=== PATIENT | male | born 1985 ===

== ENCOUNTER 2017-11-28 12:59 | Outpatient (RCR) | payer OTHER ==
[~2017-11-28 12:59] MED LIST: ASPI-757 PO; CEF300 PO; CHOL500050 PO; ENOX100D5 SQ; IBUP800T37 PO; LEVO-85 PO; ONDA8TAB94 PO; OXYC20OR PO; OXYC20TA61 PO; PROC10TA4 PO; SANCUSOPT TD; WARF-1 PO
[2017-11-28 13:21] LABS: PLATELET COUNT, AUTOMATED 274 K/uL (150-450)
[2017-11-28] MEDS ORDERED: NS 0.9% 20 ML SDV 40 ML ONE (13:29)
[2017-11-28] MEDS ORDERED: GADOBENATE 529MG/1ML 15ML VIAL IVP ONE (13:29)
--- NOTE | 2017-11-28 15:23 | RADIOLOGY IMAGING REPORT ---
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 Additional pertinent history: none TECHNIQUE: Multiplanar multisequence neck MRI was performed without and with intravenous contrast Contrast dose: 15 mL of MultiHance. . Additional focused sequences: none COMPARISON STUDIES: Neck MRI 05/30 17 FINDINGS: Visualized orbits / brain / paranasal sinuses: Right maxillary antrum is asymmetrically small but wi thout evidence of enophthalmos of the right orbit. No acute inflammatory change. Nasal cavity / nasopharynx: negative Oral cavity / oropharynx / hypopharynx: Postsurgical changes of the right lateral tongue with fatty replacement appears stable from prior. The right submandibular gland has been resected. No evidence o f locally recurrent mass or abnormal enhancement. Parapharyngeal / airways control specialist spaces: negative Major salivary glands: Per above. The parotid glands remain normal as does the left submandibular gl and. Larynx / trachea / esophagus / thyroid: negative Perivertebral space: negative Vessels: negative Bones: negative Lymph nodes: negative Upper chest: negative IMPRESSION: Stable postoperative changes involving the intrinsic tongue and right submandibular bed. No evidence of recurrent malignancy. Stable asymmetry of the maxillary sinuses but without associated right-sided enophthalmos to suggest sinusitis syndrome. Report Dictated By: Delta De Jesus MD at 11/28/2017 3:07 PM Report E-Signed By: Delta De Jesus MD at 11/28/2017 3:18 PM WSN:[id number]
[2017-11-29] MEDS ORDERED: LEVO-3 PO (16:56)
[2017-11-29] MEDS ORDERED: MULT1CAP59 PO (17:01)
[2017-12-08] MEDS ORDERED: TRIA5PAS12 DT (12:58)
== END 2017-12-23 14:20 | disposition home or self-care (01) ==
LOC: SPU 12:59
PROVIDERS: ATTEND Radiology Radiation Oncology
DX: Z85.810 Personal history of malignant neoplasm of tongue (principal); K12.1 Other forms of stomatitis; Z92.3 Personal history of irradiation
CPT/HCPCS: 70543; 84443; 85025; 99212; A9577; J7050; 82040; 82247; 82310; 82374; 82435; 82565; 82947; 84075; 84132; 84155; 84295; 84450; 84460; 84520

== ENCOUNTER 2018-02-07 14:55 | Outpatient (RCR) | payer OTHER ==
[2018-02-02 13:00] VITALS: BP 119/87
[~2018-02-07 14:55] MED LIST changes: +LEVO-3 PO; +MULT1CAP59 PO; +TRIA5PAS12 DT
== END 2018-02-26 ==
LOC: RAON 14:55
PROVIDERS: ATTEND Radiology Radiation Oncology
DX: Z85.89 Personal history of malignant neoplasm of other organs and systems (principal); Z92.3 Personal history of irradiation; Z92.21 Personal history of antineoplastic chemotherapy
CPT/HCPCS: 36415; 84443; 99212

== ENCOUNTER 2018-05-30 15:53 | Outpatient (RCR) | payer OTHER ==
[2018-02-02 13:00] VITALS: BP 119/87
--- NOTE | 2018-05-26 15:24 | RADIOLOGY IMAGING REPORT ---
FACILITY: [facility] [place] PATIENT NAME: Gage Sandoval : 1985 MR: [id number] V: [id number] EXAM DATE: ORDERING PHYSICIAN: ED SIMMONS TECHNOLOGIST: Location: [facility] Patient: Gage Sandoval : 1985 Visit/Account:[id number] Date of Sevice: 05/26/2018 ORBIT FACE NECK W W/O CONTRAST INDICATION: Squamous cell carcinoma of the tongue COMPARISON: November 28, 2017, May 30, 2017 TECHNIQUE: Multiplane pre and postcontrast MR imaging performed through the neck. 15 mL MultiHance i njected. FINDINGS: Normal parotid and left submandibular glands. Absent right submandibular gland as before. Unchanged post therapeutic fatty change in the right lateral floor of mouth region versus right later al tongue. No enlarged or abnormal appearing neck lymph nodes. Enhancing round nodule in the midline lower floor of the mouth region, series 14 T1 postcontrast acqu isition image 21 is unchanged compared to May 30, 2017 exam and is favored represent a benign l ymph node. There is curvilinear nonmasslike enhancement in the inferior lateral right floor of mouth, axial post contrast image 20, series 14 which is stable to decreased compared to May 30, 2017. Otherwise unremarkable neck soft tissues. IMPRESSION: 1. No definitive disease recurrence. No evidence of metastatic disease. 2. Postsurgical findings in the right lateral floor of mouth/right lateral tongue region as before. 3. Unchanged surgically absent right submandibular gland. 4. Curvilinear nonmasslike unchanged enhancement in the inferior lateral right floor of mouth is fav ored to represent postsurgical enhancement. If there is concern for disease recurrence in this area PET/CT could be utilized for further characte rization as needed. Report Dictated By: Fabiano Jj MD at 05/26/2018 2:51 PM Report E-Signed By: Fabiano Jj MD at 05/26/2018 3:20 PM WSN:[id number]
[~2018-05-30 15:53] MED LIST changes: +GADOBENATE 529MG/1ML 15ML VIAL IVP ONE
[2018-05-31] MEDS ORDERED: LEVO150T72 PO (08:57)
== END 2018-06-14 09:20 | disposition home or self-care (01) ==
LOC: RAON 15:53
PROVIDERS: ATTEND Radiology Radiation Oncology
DX: C02.0 Malignant neoplasm of dorsal surface of tongue (principal)
CPT/HCPCS: 36415; 70543; 82565; 84443; 99212; A9577

== ENCOUNTER 2018-11-01 17:00 | Outpatient (RCR) | payer OTHER ==
--- NOTE | 2018-09-21 18:32 | PT INITIAL EVALUATION ---
MEDICAL DIAGNOSIS: Mandibular Lymphadenopathy, Squamous Cell Carcinoma of Tongue/Oral Cavity TREATMENT DIAGNOSIS: Bilateral Head and Neck Secondary Lymphedema, Left TMJ dysfunction DATE OF ONSET: 09/21/18 SUBJECTIVE: Gage is a 32 year old male presenting to physical therapy following recent acute on chronic exacerbation of swelling of the jaw and neck. Gage has a history of SCC on the R side resulting in hemiglossectomy and lymph node removal of 20 submandibular nodules, chemotherapy, and B radiation treatment in 2016. Additionally pt had full reconstruction of his R tongue and mouth floor. Following and during treatment pt started developing edema on the L side of his neck and face. He started massage therapy which typically reduced edema. However, 3 weeks ago Gage reports that the L sided swelling returned and the R side started swelling significantly resulting in R sided jaw pain. Pt was started on antibiotics and steroids per his [employer] which decreased some of the swelling, but a moderate amount remains. Pt reports occasional R jaw pain with chewing and yawning and occasional clicking. REHAB PROBLEM LIST: Increased Pain Decreased ROM Decreased Function Decreased ADL's PREVIOUS MEDICAL HISTORY: See EMR OBJECTIVE: Pt presents with moderate edema along the mandibular line with slight redness on the L side of the face and cheek. Pt has incision on the anterior lateral aspect of the L neck below the mandible. Palpation: Pt is tender to palpation along the L TMJ and on a few submandibular lymph nodes. Special Tests: Soft pitting is present on the R judaism and mandible with quick refill, pitting negative on L side edema. Other Objective Findings: Circumferential measures: Neck below mandible: 44cm. Facial Edema Measures (R,L): Ear to Chin (#1): 17, 16.4, Mouth to Ear (#2): 12.6, 12.5, Nose to Jaw (#3): 13, 12.3, Inner eye to Jaw (#4): 14, 14.7, Outer eye to Jaw (#5): 10.5, 11, Inner eye to Chin (#6): 11.5, 12, Jaw to Chin (#7): 15, 15.4 ASSESSMENT: Gage presents with signs and symptoms consistent with bilateral stage 1b secondary lymphedema of the head and neck, as well as L side TMJ dysfunction. Physical therapy consisting of CDT with an emphasis on MLD is indicated for this patient to improve pt function with ADL's by correcting the above listed deficits. Short Term Goals In 2 weeks pt will no longer have pitting edema present for improved function with ADL's and decreased pain. In 4 weeks pt will decrease edema along the mandible (#7) to <11cm B for improved function with ADL's and decreased pain. In 4 weeks pt will be independent with self MLD and compliant with compression garment use (if needed) for maintenance of function with ADL's. Patient's Goals Decrease edema in the head and neck, decrease L jaw pain. PLAN: Patient to be seen for Manual Therapy/STM/MET Range of Motion Stretching Neuromuscular Re-ed Home Exercise Program [facility]./Manual Traction Therapeutic Activities 4x/Week for 6 Weeks If you have any questions, comments, or concerns about this report or plan, please contact me at . Thank you, Jenna Martínez, PT, DPT, CLT MTDD
--- NOTE | 2018-10-19 15:45 | PT PLAN OF CARE ---
Physician: DAE Patel Patient is being seen: 4x/Week Therapist: Jenna Martínez, PT, DPT, CLT Medical Diagnosis: Mandibular Lymphadenopathy, Squamous Cell Carcinoma of Tongue/Oral Cavity Treatment Diagnosis: Bilateral Head and Neck Secondary Lymphedema, L TMJ dysfunction Date of Onset: 09/21/18 Date of Initial Evaluation: 09/21/18 Date patient was last seen: 10/19/18 Number of treatments: 10 Number of cancellations/No shows: 0 INTERVENTIONS: Manual Therapy/STM/MET Range of Motion Stretching Neuromuscular Re-ed Home Exercise Program Mech./Manual Traction Therapeutic Activities GOALS: In 2 weeks pt will no longer have pitting edema present for improved function with ADL's and decreased pain. MET In 4 weeks pt will decrease edema along the mandible (#7) to <11cm B for improved function with ADL's and decreased pain. In 4 weeks pt will be independent with self MLD and compliant with compression garment use (if needed) for maintenance of function with ADL's. PATIENT'S GOAL: Decrease edema in the head and neck, decrease L jaw pain. Status of Patient's Goals: 1/3 MET Patient Compliance: Good Prognosis: Good Reasons for continuing therapy: Gage shows gradual gains in improved edema overall. The L jaw and face is now fully reduced without any pitting and only slight lingering edema around the TMJ. Erythema and edema remains on the R jaw into the cheek, however the temporal and medial jaw show good reductions. Additionally wrinkles are present around the R eye with good skin mobility. Further PT is indicated to continue with gains in circumferential reduction and decreased protein rich fluid to improve pt comfort and facial function. Palpation: Pt is tender to palpation along the L TMJ and on a few submandibular lymph nodes. Special Tests: Soft pitting is present on the R taoism and mandible with quick refill, pitting negative on L side edema. Other Objective Findings: Circumferential measures: Neck below mandible: 44cm. Facial Edema Measures (R,L) (Initial Evaluation): Ear to Chin (#1): 17, 16.4, Mouth to Ear (#2): 12.6, 12.5, Nose to Jaw (#3): 13, 12.3, Inner eye to Jaw (#4): 14, 14.7, Outer eye to Jaw (#5): 10.5, 11, Inner eye to Chin (#6): 11.5, 12, Jaw to Chin (#7): 15, 15.4 If you have any questions, comments, or concerns about this report or plan, please contact me at . Thank you, Jenna Martínez, PT, DPT, CLT MTDD
[~2018-11-01 17:00] MED LIST changes: -GADOBENATE 529MG/1ML 15ML VIAL IVP ONE; +LEVO150T72 PO
== END 2018-12-20 ==
LOC: PT 17:00
PROVIDERS: ATTEND Nurse Practitioner Family
DX: E03.9 Hypothyroidism, unspecified (principal); R59.0 Localized enlarged lymph nodes; C02.9 Malignant neoplasm of tongue, unspecified
CPT/HCPCS: 97161

== ENCOUNTER → 2019-02-08 | Outpatient (CLI) | payer OTHER ==
--- NOTE | 2019-02-08 15:10 | RADIOLOGY IMAGING REPORT ---
FACILITY: [facility] - [place], [place] PATIENT NAME: Gage Sandoval : 1985 MR: [id number] V: [id number] EXAM DATE: ORDERING PHYSICIAN: JANES STOCK TECHNOLOGIST: Location: [facility] [place] Patient: Gage Sandoval : 1985 Visit/Account:[id number] Date of Sevice: 02/08/2019 THYROID HISTORY: thyroxine daily, radiation to neck, squamous cell carcinoma of tongue COMPARISON: None. FINDINGS: SIZE: Right lobe: 3.4 x 1.2 x 0.9 cm Left lobe: 3.9 x 0.9 x 1.1 cm Isthmus: 1 mm PARENCHYMA: Homogeneous. NODULES: Right lobe: * None discrete. Left lobe: * Just inferior to the left lobe there is a 1.1 x 0.7 x 1.1 cm echogenic nodule with a hypoechoic ri m. This may represent a parathyroid gland or possibly a lymph node Isthmus: * None discrete. VASCULARITY: Within normal limits. ADDITIONAL FINDINGS: None. IMPRESSION: There is a 1.1 x 0.7 x 1.1 cm echogenic nodule with a hypoechoic rim just inferior to the left lobe t he thyroid gland. This may represent a parathyroid gland or possibly a lymph node. REFERENCE: 2015 [employer] Management Guidelines for Adult Patients with Thyroid Nodules and D ifferentiated Thyroid Cancer: The [employer] Guidelines Task Force on Thyroid Nodul es and Differentiated Thyroid Cancer. SONOGRAPHIC PATTERNS: * Benign: Purely cystic nodules (no solid component); estimated risk of malignancy <1 percent; no bi opsy recommended. * Very Low Suspicion: Spongiform or partially cystic nodules without any of the sonographic features described in low, intermediate, or high suspicion patterns; estimated risk of malignancy <3 percent; consider FNA at > 2 cm (Observation without FNA is also a reasonable option). * Low Suspicion: Isoechoic or hyperechoic solid nodule, or partially cystic nodule with eccentric so lid areas, without microcalcification, irregular margin or ETE (extra-thyroidal extension), or taller than wide shape; estimated risk of malignancy 5-10 percent; recommend FNA at >1.5 cm. * Intermediate Suspicion: Hypoechoic solid nodule with smooth margins without microcalcifications, E TE (extra-thyroidal extension), or taller than wide shape; estimated risk of malignancy 10-20 percent ; recommend FNA at > 1 cm. * High Suspicion: Solid hypoechoic nodule or solid hypoechoic component of a partially cystic nodule with one or more of the following features: irregular margins (infiltrative, microlobulated), microc alcifications, taller than wide shape, rim calcifications with small extrusive soft tissue component, evidence of ETE (extra-thyroidal extension); estimated risk of malignancy >70-90 percent; recommend FNA at > 1 cm. NOTES: * Although a sonographically suspicious subcentimeter thyroid nodule without evidence of extrathyroi alfonso extension or sonographically suspicious lymph nodes may be observed with close sonographic follow -up rather than pursuing immediate FNA, patient age and preference may modify decision-making. A > 50% interval increase in nodule volume and/or development of new suspicious sonographic features are felt to be a valid reasons for potential re-aspiration of a nodule previously shown to have benig n FNA cytology.: Report Dictated By: Nohemy Williamson MD at 02/08/2019 3:01 PM Report E-Signed By: Nohemy Williamson MD at 02/08/2019 3:05 PM WSN:[id number]
== END ==
LOC: US 01:06
PROVIDERS: ATTEND Nurse Practitioner Family
DX: R22.1 Localized swelling, mass and lump, neck (principal); R04.1 Hemorrhage from throat; R53.83 Other fatigue; E03.9 Hypothyroidism, unspecified; C02.9 Malignant neoplasm of tongue, unspecified; Z92.21 Personal history of antineoplastic chemotherapy
CPT/HCPCS: 76536

== ENCOUNTER → 2019-02-09 | Outpatient (CLI) | payer OTHER ==
[2019-02-09 07:57] LABS: PLATELET COUNT, AUTOMATED 251 K/uL (150-450)
[2019-02-09 07:58] LABS: LDL CHOLESTEROL 80 mg/dl
== END ==
LOC: LAB 07:18
PROVIDERS: ATTEND Nurse Practitioner Family
DX: R68.82 Decreased libido (principal); E04.1 Nontoxic single thyroid nodule; R53.83 Other fatigue; E03.9 Hypothyroidism, unspecified; R73.09 Other abnormal glucose; R22.1 Localized swelling, mass and lump, neck; E78.2 Mixed hyperlipidemia; Z51.0 Encounter for antineoplastic radiation therapy; C02.9 Malignant neoplasm of tongue, unspecified
CPT/HCPCS: 36415; 82040; 82247; 82310; 82374; 82435; 82465; 82565; 82947; 83036; 83718; 84075; 84132; 84155; 84295; 84403; 84439; 84443; 84450; 84460; 84478; 84481; 84520; 85025